=== PATIENT | male | born 1995 | race Caucasian/White ===

== ENCOUNTER 2020-03-05 16:12 | Emergency (ER) | payer OTHER ==
[2020-03-05] MEDS ORDERED: Ringers Lactate 1,000 ML IV ONE (17:35)
[2020-03-05] MEDS ORDERED: DIAZEPAM 10 MG/2 ML INJ SYRINGE ONE (17:35)
[2020-03-05] MEDS ORDERED: MECLIZINE HCL 12.5 MG TAB ONE (17:35)
[2020-03-05 17:46] LABS: Absolute Lymphocytes (CBC) 0.7 K/uL (0.7-4.9); Basophils % 0.4 % (0-1.3); Hematocrit 47.2 % (39.6-49.0); Lymphocytes % 11.4 % (15.3-44.8); MPV 9.1 fL (7.6-11.3); Protime INR 0.91
[2020-03-05 17:58] LABS: ALT/SGPT 39 U/L (12-78); AST/SGOT 26 U/L (15-37); Albumin 4.5 g/dL (3.4-5.0); Alkaline Phosphatase 67 U/L (45-117); BUN Blood Urea Nitrogen 13 mg/dL (7-18); Bicarbonate 25 mmol/L (21-32); Bilirubin Direct 0.2 mg/dL (0-0.2); Bilirubin Total 0.7 mg/dL (0.2-1.0); Glucose Level 179 mg/dL (74-106); Potassium 3.7 mmol/L (3.5-5.1); Protein, Total 8.1 g/dL (6.4-8.2); Sodium Level 136 mmol/L (136-145)
[2020-03-05 19:17] LABS: Barbiturates NEGATIVE (NEGATIVE); Benzodiazepines NEGATIVE (NEGATIVE); Cocaine NEGATIVE (NEGATIVE); METHAMPHETAM NEGATIVE (NEGATIVE); Methadone NEGATIVE (NEGATIVE); Opiates NEGATIVE (NEGATIVE); Phencyclidine NEGATIVE (NEGATIVE); THC Cannibis NEGATIVE (NEGATIVE)
--- NOTE | 2020-03-05 19:22 | EDPHYS ---
Physician Documentation [facility] Name: Leonidas Monson Age: 24 yrs Sex: Male : 1995 Arrival Date: 03/05/2020 Time: 16:14 Bed 23 Private MD: ED Physician Qasim Copeland HPI: 03/05 18:05 This 24 yrs old Male presents to ER via Ambulatory with complaints of jr8 Dizziness. 18:05 Onset: The symptoms/episode began/occurred acutely, today. Modifying factors: The jr8 symptoms are alleviated by holding head still, lying down, the symptoms are aggravated by movement of head. Associated signs and symptoms: The patient has no apparent associated signs or symptoms. Severity of symptoms: At their worst the symptoms were mild in the emergency department the symptoms are unchanged. The patient has not experienced similar symptoms in the past. The patient has not recently seen a physician. Patient stated that he drank about 15 beers yesterday. Last drink about 10 last night. Today dizzy and shaky . Historical: - Allergies: 16:30 No Known Allergies; ca1 - Home Meds: 16:30 None [Active]; ca1 - PMHx: 16:30 None; ca1 - PSHx: 16:30 None; ca1 - Immunization history:: Adult Immunizations up to date. - Social history:: Smoking status: Patient denies any tobacco usage or history of. Patient uses alcohol, on a daily basis. Patient/guardian denies using street drugs, IV drugs. ROS: 19:20 Eyes: Negative for injury, pain, redness, and discharge, ENT: Negative for injury, jr8 pain, and discharge, Neck: Negative for injury, pain, and swelling, Cardiovascular: Negative for chest pain, palpitations, and edema, Respiratory: Negative for shortness of breath, cough, wheezing, and pleuritic chest pain, Abdomen/GI: Negative for abdominal pain, nausea, vomiting, diarrhea, and constipation, Back: Negative for injury and pain, MS/Extremity: Negative for injury and deformity, Skin: Negative for injury, rash, and discoloration. 19:20 Neuro: Positive for dizziness. Exam: 19:20 Eyes: Pupils equal round and reactive to light, extra-ocular motions intact. Lids and jr8 lashes normal. Conjunctiva and sclera are non-icteric and not injected. Cornea within normal limits. Periorbital areas with no swelling, redness, or edema. ENT: Nares patent. No nasal discharge, no septal abnormalities noted. Tympanic membranes are normal and external auditory canals are clear. Oropharynx with no redness, swelling, or masses, exudates, or evidence of obstruction, uvula midline. Mucous membranes moist. Neck: Trachea midline, no thyromegaly or masses palpated, and no cervical lymphadenopathy. Supple, full range of motion without nuchal rigidity, or vertebral point tenderness. No Meningismus. Respiratory: Lungs have equal breath sounds bilaterally, clear to auscultation and percussion. No rales, rhonchi or wheezes noted. No increased work of breathing, no retractions or nasal flaring. Abdomen/GI: Soft, non-tender, with normal bowel sounds. No distension or tympany. No guarding or rebound. No evidence of tenderness throughout. Back: No spinal tenderness. No costovertebral tenderness. Full range of motion. Skin: Warm, dry with normal turgor. Normal color with no rashes, no lesions, and no evidence of cellulitis. MS/ Extremity: Pulses equal, no cyanosis. Neurovascular intact. Full, normal range of motion. Neuro: Awake and alert, GCS 15, oriented to person, place, time, and situation. Cranial nerves II-XII grossly intact. Motor strength 5/5 in all extremities. Sensory grossly intact. Cerebellar exam normal. Normal gait. 19:20 Cardiovascular: Rate: tachycardic, Rhythm: regular, Pulses: Pulses are 2+ in right radial artery and left radial artery. Heart sounds: normal, normal S1and S2, no S3 or S4, no murmur, no rub, no gallop, Edema: is not appreciated, JVD: is not appreciated. Vital Signs: 16:26 BP 153 / 86; Pulse 111; Resp 18 S; Temp 98.1(TE); Pulse Ox 100% on R/A; Weight 90.72 kg ca1 (R); Height 6 ft. 4 in. (193.04 cm) (R); Pain 0/10; 17:36 BP 141 / 80; Pulse 90; Resp 20 S; Pulse Ox 100% on R/A; jd3 18:58 BP 131 / 81; Pulse 84; Resp 16 S; Pulse Ox 99% on R/A; jd3 19:48 BP 138 / 87; Pulse 89; Resp 17 S; Pulse Ox 99% on R/A; jd3 16:26 Body Mass Index 24.34 (90.72 kg, 193.04 cm) ca1 MDM: 16:44 Patient medically screened. [facility] 19:20 Data reviewed: vital signs, nurses notes, lab test result(s), EKG. Data interpreted: [facility] Pulse oximetry: on room air is 99 %. Interpretation: normal. Counseling: I had a detailed discussion with the patient and/or guardian regarding: the historical points, exam findings, and any diagnostic results supporting the discharge/admit diagnosis, lab results, the need for outpatient follow up, a family practitioner, to return to the emergency department if symptoms worsen or persist or if there are any questions or concerns that arise at home. Response to treatment: the patient's symptoms have resolved after treatment, patient is well hydrated. 03/05 16:54 Order name: Acetaminophen [facility] 03/05 16:54 Order name: Basic Metabolic Panel [facility] 03/05 16:54 Order name: CBC with Diff; Complete Time: 17:49 [facility] 03/05 16:54 Order name: ETOH Level; Complete Time: 18:23 [facility] 03/05 16:54 Order name: Hepatic Function; Complete Time: 18:23 [facility] 03/05 16:54 Order name: PT-INR; Complete Time: 17:49 [facility] 03/05 16:54 Order name: Ptt, Activated; Complete Time: 17:49 [facility] 03/05 16:54 Order name: Salicylate; Complete Time: 18:23 [facility] 03/05 16:54 Order name: Urine Drug Screen; Complete Time: 19:18 [facility] 03/05 16:55 Order name: Acetaminophen Level; Complete Time: 18:23 EDMS 03/05 16:55 Order name: Basic Metabolic Panel; Complete Time: 18:23 EDMS 03/05 18:56 Order name: Urine Dipstick--Ancillary (enter results); Complete Time: 19:46 bd 03/05 16:35 Order name: EKG; Complete Time: 16:35 ca1 03/05 16:35 Order name: EKG - Nurse/Tech; Complete Time: 16:35 ca1 03/05 16:54 Order name: IV Saline Lock; Complete Time: 17:20 [facility] 03/05 16:54 Order name: Labs collected and sent; Complete Time: 17:20 jr8 03/05 16:54 Order name: Urine Dipstick-Ancillary (obtain specimen); Complete Time: 19:02 8 Administered Medications: 17:33 Drug: Valium 5 mg Route: IVP; Site: right antecubital; jd3 18:30 Follow up: Response: No adverse reaction jd3 17:33 Drug: Meclizine 25 mg Route: PO; jd3 18:30 Follow up: Response: No adverse reaction jd3 17:34 Drug: Ringers - Lactated Ringers Solution 1000 ml Route: IV; Rate: bolus; Site: right jd3 antecubital; 18:30 Follow up: Response: No adverse reaction; IV Status: Completed infusion; IV Intake: jd3 1000ml Disposition: 03/05/20 19:22 Discharged to Home. Impression: Dizziness, Alcohol dependence with withdrawal. - Condition is Stable. - Discharge Instructions: Alcohol Withdrawal, Alcohol Use Disorder, Alcohol Abuse and Nutrition. - Medication Reconciliation Form, Thank You Letter, Antibiotic Education, Prescription Opioid Use form. - Follow up: Private Physician; When: 1 - 2 days; Reason: Recheck today's complaints, Continuance of care, Re-evaluation by your physician. - Problem is new. - Symptoms have improved. Addendum: 03/09/2020 20:25 Co-signature as Attending Physician, Qasim Copeland MD. r n Signatures: Dispatcher [employer] EDMS Qasim Copeland MD MD rn Roszak, Josh, PA PA jr8 Nish Wilson RN RN jd3 Acob, Cheryl, RN RN ca1 Corrections: (The following items were deleted from the chart) 03/05 19:50 19:22 03/05/2020 19:22 Discharged to Home. Impression: Dizziness; Alcohol dependence jd3 with withdrawal. Condition is Stable. Forms are Medication Reconciliation Form, Thank You Letter, Antibiotic Education, Prescription Opioid Use. Follow up: Private Physician; When: 1 - 2 days; Reason: Recheck today's complaints, Continuance of care, Re-evaluation by your physician. Problem is new. Symptoms have improved. jr8
--- NOTE | 2020-03-05 19:22 | ER ---
Nurse's Notes [facility] Name: Leonidas Monson Age: 24 yrs Sex: Male : 1995 Arrival Date: 03/05/2020 Time: 16:14 Bed 23 Private MD: Diagnosis: Dizziness;Alcohol dependence with withdrawal Presentation: 03/05 16:26 Chief complaint: Patient states: 30 minutes ago I felt a dizzy spell. Was laying down, ca1 and I just got dizzy and lightheaded. Denies nausea. Denies SOB. Denies previous episodes of dizziness. Coronavirus screen: Client denies travel out of the [place] in the last 14 days. At this time, the client does not indicate any symptoms associated with coronavirus-19. Ebola Screen: Patient negative for fever greater than or equal to 101.5 degrees Fahrenheit, and additional compatible Ebola Virus Disease symptoms Patient denies exposure to infectious person. Patient denies travel to an Ebola-affected area in the 21 days before illness onset. No symptoms or risks identified at this time. Initial Sepsis Screen: Does the patient meet any 2 criteria? No. Patient's initial sepsis screen is negative. Does the patient have a suspected source of infection? No. Patient's initial sepsis screen is negative. Risk Assessment: Do you want to hurt yourself or someone else? Patient reports no desire to harm self or others. Onset of symptoms was March 05, 2020. 16:26 Method Of Arrival: Ambulatory ca1 16:26 Acuity: [place] 3 ca1 Historical: - Allergies: 16:30 No Known Allergies; ca1 - Home Meds: 16:30 None [Active]; ca1 - PMHx: 16:30 None; ca1 - PSHx: 16:30 None; ca1 - Immunization history:: Adult Immunizations up to date. - Social history:: Smoking status: Patient denies any tobacco usage or history of. Patient uses alcohol, on a daily basis. Patient/guardian denies using street drugs, IV drugs. Screenin:35 Abuse screen: Denies threats or abuse. Nutritional screening: No deficits noted. jd3 Tuberculosis screening: No symptoms or risk factors identified. Fall Risk Ambulatory Aid- None/Bed Rest/Nurse Assist (0 pts). Gait- Normal/Bed Rest/Wheelchair (0 pts) Mental Status- Oriented to own ability (0 pts). Total Hawk Fall Scale indicates No Risk (0-24 pts). Assessment: 17:20 General: Appears in no apparent distress. uncomfortable, Behavior is calm, cooperative, jd3 appropriate for age, anxious. Pain: Denies pain. Neuro: Level of Consciousness is awake, alert, obeys commands, Oriented to person, place, time, situation, Reports dizziness. Cardiovascular: Denies chest pain, Capillary refill < 3 seconds Patient's skin is warm and dry. Respiratory: Airway is patent Respiratory effort is even, unlabored, Respiratory pattern is regular, symmetrical, Denies cough, shortness of breath. GI: Abdomen is round non-distended, Abd is soft and non tender X 4 quads. Patient currently denies diarrhea, nausea, vomiting. : No signs and/or symptoms were reported regarding the genitourinary system. EENT: No signs and/or symptoms were reported regarding the EENT system. Derm: Skin is intact, Skin is dry, Skin is normal, Skin temperature is warm. Musculoskeletal: Circulation, motion, and sensation intact. Range of motion: intact in all extremities. 18:58 Reassessment: Patient appears in no apparent distress at this time. Patient and/or jd3 family updated on plan of care and expected duration. Pain level reassessed. Patient is alert, oriented x 3, equal unlabored respirations, skin warm/dry/pink. Patient denies pain at this time. Patient states feeling better. 19:48 Reassessment: Patient appears in no apparent distress at this time. Patient and/or jd3 family updated on plan of care and expected duration. Pain level reassessed. Patient is alert, oriented x 3, equal unlabored respirations, skin warm/dry/pink. Patient denies pain at this time. Patient states feeling better. Vital Signs: 16:26 BP 153 / 86; Pulse 111; Resp 18 S; Temp 98.1(TE); Pulse Ox 100% on R/A; Weight 90.72 kg ca1 (R); Height 6 ft. 4 in. (193.04 cm) (R); Pain 0/10; 17:36 BP 141 / 80; Pulse 90; Resp 20 S; Pulse Ox 100% on R/A; jd3 18:58 BP 131 / 81; Pulse 84; Resp 16 S; Pulse Ox 99% on R/A; jd3 19:48 BP 138 / 87; Pulse 89; Resp 17 S; Pulse Ox 99% on R/A; jd3 16:26 Body Mass Index 24.34 (90.72 kg, 193.04 cm) ca1 ED Course: 16:14 Patient arrived in ED. rg4 16:29 Triage completed. ca1 16:30 Arm band placed on right wrist. ca1 16:43 Cayetano Stevenson PA is PHCP. jr8 16:43 Qasim Copeland MD is Attending Physician. jr8 17:08 Nish Wilson, SHERON is Primary Nurse. jd3 17:20 Inserted saline lock: 20 gauge in right antecubital area, using aseptic technique. jd3 Blood collected. 17:36 Patient has correct armband on for positive identification. Bed in low position. Call jd3 light in reach. Side rails up X 1. monitoring tech on. Pulse ox on. NIBP on. 19:48 No provider procedures requiring assistance completed. IV discontinued, intact, jd3 bleeding controlled, No redness/swelling at site. Pressure dressing applied. Administered Medications: 17:33 Drug: Valium 5 mg Route: IVP; Site: right antecubital; jd3 18:30 Follow up: Response: No adverse reaction jd3 17:33 Drug: Meclizine 25 mg Route: PO; jd3 18:30 Follow up: Response: No adverse reaction jd3 17:34 Drug: Ringers - Lactated Ringers Solution 1000 ml Route: IV; Rate: bolus; Site: right jd3 antecubital; 18:30 Follow up: Response: No adverse reaction; IV Status: Completed infusion; IV Intake: jd3 1000ml Intake: 18:30 IV: 1000ml; Total: 1000ml. jd3 Outcome: 19:22 Discharge ordered by . jr8 19:48 Discharged to home ambulatory, with family. jd3 19:48 Condition: stable 19:48 Discharge instructions given to patient, Instructed on discharge instructions, follow up and referral plans. Demonstrated understanding of instructions, follow-up care. 19:50 Patient left the ED. jd3 Signatures: aCyetano Stevenson PA PA jr8 Aimee Still rg4 Nish Wilson RN RN jd3 Farnaz Lee RN RN ca1
[2020-03-05 19:32] LABS: Urine Blood NEGATIVE (NEG); Urine Glucose NEGATIVE (NEG); Urine Protein NEGATIVE (NEG); Urine Specific Gravity 1.015 (1.005-1.030)
[2020-03-05 21:22] VITALS: TEMP 98.1
[2020-03-05 21:25] VITALS: O2SAT 99
[2020-03-05 21:27] VITALS: BP 138/87
--- NOTE | 2020-03-06 07:40 | EKG ---
Test Date: 2020-03-05 Test Time: 16:34:03 Insurance Territory Manager: GIORGI MEASUREMENT RESULTS: Intervals: Rate: 106 MO: 138 QRSD: 96 QT: 330 QTc: 438 Melvin: P: 86 MO: 138 QRS: 100 T: 70 INTERPRETIVE STATEMENTS: Sinus tachycardia Right atrial enlargement Rightward axis Pulmonary disease pattern Incomplete right bundle branch block Abnormal ECG No previous ECG available for comparison Electronically Signed On 03-06-20 07:39:45 CDT by You Toussaint
== END 2020-03-05 19:50 | disposition home or self-care (01) ==
LOC: ER 16:12
DX: F10.239 Alcohol dependence with withdrawal, unspecified (principal)
CPT/HCPCS: 96365; 93005; 85025; 80048; 36415; 80320; 80329 ×2; 85610; 80076; 80307 ×8; 85730; 81003; 96375; 99284; J8597; J3360; J7120

== ENCOUNTER 2020-08-06 20:44 | Emergency (ER) | payer OTHER ==
--- OUTSIDE RECORDS SUMMARY | 2020-08-06 20:47 | XMS REPORT | Continuity of Care Document ---
:1995 Author Organization [facility] t Address [address] [place] [address] Care Team Providers Name Role Phone Asked, Pcp Primary Care Physician Unavailable Kirti Hudson MD. Attending Clinician Ajit HOLBROOK, T Attending Clinician Unavailable Lab, Fam Pob I Attending Clinician Unavailable Doctor Unassigned, Name Attending Clinician Unavailable Payers Payer Name Policy Type Policy Effective Date Expiration Date Sour Number AETNAAETNA PPO [id number] 2017 [place] OPEN 00:00:00 [employer] [id number] /07/2017-PresentP PO Problems This patient has no known problems. Allergies, Adverse Reactions, Alerts This patient has no known allergies or adverse reactions. Social History Social Habit Start Date Stop Date Quantity Comments Source Sex Assigned At Anton stominh Bettencourt Medications This patient has no known medications. Procedures Procedure Date / Time Performed Performing Clinician Lucinda e XR HAND 3+ VW RIGHT 2020-05-09 11:49:26 Pedro Hudson XR HAND 3+ VW RIGHT 2020-04-19 09:28:38 Pedro Hudson XR HAND 3+ VW RIGHT 2020-04-19 09:03:14 Pedro Hudson Plan of Care Planned Activity Planned Date Details Comments Source Future Scheduled 2020-02-17 INFLUENZA VACCINE [place] [facility] 00:00:00 [code = INFLUENZA VACCINE] Future Scheduled 2011 COVID-19 VACCINE (1 [place] [facility] Test 00:00:00 of 2) [code = COVID-19 VACCINE (1 of 2)] Encounters Start End Encounter Admission Attending Care Care Encounter Source Date/Time Date/Time Type Type Clinicians Facility Department ID 2020-05-09 2020-05-09 Outpatient [facility] [id number] [place] 00:00:00 00:00:00 PDERO 506 Method i 2020-05-09 2020-05-09 [facility] [id number] [place] 00:00:00 00:00:00 PEDRO 884 [facility] i 2020-04-19 2020-04-19 [facility] [id number] [place] 00:00:00 00:00:00 PEDRO 207 Method i 2020-04-19 2020-04-19 [facility] [id number] 0515 [place] 00:00:00 00:00:00 PEDRO 918 [facility] i 2020-04-19 2020-04-19 [facility] [id number] [place] 00:00:00 00:00:00 PEDRO 102 Method i 2020-04-19 2020-04-19 [facility] [id number] [place] 00:00:00 00:00:00 PEDRO 464 Method i 2020-03-15 2020-03-15 Letter SELENA Fong [id number] 00:00:00 00:00:00 (Out) Yolie SHARMA [id number] [place] [id number] 2020-03-11 2020-03-11 Laboratory Lab, [facility] [id number] 13:27:06 13:40:45 Only Fam P[facility] [id number] [place] [id number] Professio [phone] nal [address] 2020-03-11 2020-03-11 Letter Doctor WALTERS [id number] 00:00:00 00:00:00 (Out) FelisassEDITH tapia [id number] [place] [facility] [id number] [id number] Results This patient has no known results.
--- OUTSIDE RECORDS SUMMARY | 2020-08-06 20:47 | XMS REPORT | Clinical Summary ---
:1995 Author Organization [facility] Address [address] [place] [address] Care Team Providers Name Role Phone Asked, No Pcp Primary Care Provider Unavailable Allergies Not on File Medications Not on file Active Problems Not on file Encounters Date Type Specialty Care Team Description 05/09/2020 Office Visit Orthopedic Surgery Chito Hudson Righ t hand pain (Primary MD Dx) 05/09/2020 Travel 04/19/2020 Office Visit Orthopedic Surgery Chito Hudson Righ t hand pain (Primary MD Dx) 04/19/2020 Travel 04/18/2020 Travel after 08/06/2019 Social History Tobacco Use Types Packs/Day Years Used Date Never Assessed Sex Assigned at Date Recorded Not on file Last Filed Vital Signs Not on file Plan of Treatment Health Maintenance Due Date Last Done Comments COVID-19 VACCINE (1 of 2) 2011 INFLUENZA VACCINE 02/17/2020 Procedures Procedure Name Priority Date/Time Associated Diagnosis Comme nts XR HAND 3+ VW RIGHT Routine 05/09/2020 11:49 AM Right hand nidhi n Results for this CDT procedure are i n the results section. XR HAND 3+ VW RIGHT Routine 04/19/2020 9:28 AM Right hand nidhi n Results for this CDT procedure are i n the results section. XR HAND 3+ VW RIGHT Routine 04/19/2020 9:03 AM Right hand nidhi n Results for this CDT procedure are i n the results section. after 08/06/2019 Results XR Hand 3+ Vw Right (05/09/2020 11:49 AM CDT)Only the most recent of3 results within the time period is included. Specimen Narrative Performed At This result has an attachment that is no t available. 3 views Rt hand in good penetrance and quality with out any acute obvious HM RADIANT fractures, dislocations or calcifications unless HPI s tates otherwise. Performing Organization Address City/State/ZIP Code Phon e Number [place] [address] [place] [address] after 08/06/2019 Advance Directives For more information, please contact: [phone] Type Date Recorded Patient [facility] Explanati on Advance Directives, Living Will and Medical Power of Personal Lines Appraiser
[2020-08-06] MEDS ORDERED: NA CHLORIDE 0.9% 1,000 ML ONE (23:26)
--- NOTE | 2020-08-06 23:37 | ER ---
Nurse's Notes [facility] Name: Leonidas Monson Age: 24 yrs Sex: Male : 1995 Arrival Date: 08/06/2020 Time: 20:46 Bed 15 Private MD: Diagnosis: Palpitations Presentation: 08/06 21:12 Chief complaint: Patient states: Was at work around 1100 today., I got dizzy and my ca1 hands and legs started shaking. And my heart is racing and pounding all day. I feel a little bit better now but I can still feel my heart pounding. Coronavirus screen: Client denies travel out of the [place] in the last 14 days. At this time, the client does not indicate any symptoms associated with coronavirus-19. Ebola Screen: Patient negative for fever greater than or equal to 101.5 degrees Fahrenheit, and additional compatible Ebola Virus Disease symptoms Patient denies exposure to infectious person. Patient denies travel to an Ebola-affected area in the 21 days before illness onset. No symptoms or risks identified at this time. Initial Sepsis Screen: Does the patient meet any 2 criteria? No. Patient's initial sepsis screen is negative. Does the patient have a suspected source of infection? No. Patient's initial sepsis screen is negative. Risk Assessment: Do you want to hurt yourself or someone else? Patient reports no desire to harm self or others. Onset of symptoms was August 06, 2020. 21:12 Method Of Arrival: Ambulatory ca1 21:12 Acuity: [place] 3 ca1 Historical: - Allergies: 21:17 No Known Allergies; ca1 - Home Meds: 21:17 None [Active]; ca1 - PMHx: 21:17 None; ca1 - PSHx: 21:17 None; ca1 - Immunization history:: Flu vaccine is not up to date. - Social history:: Smoking status: Patient denies any tobacco usage or history of. Patient/guardian denies using alcohol, street drugs, The patient lives with family. - Family history:: not pertinent. Screenin:10 Abuse screen: Denies threats or abuse. Denies injuries from another. Nutritional rr5 screening: No deficits noted. Tuberculosis screening: No symptoms or risk factors identified. Fall Risk IV access (20 points). Total Hawk Fall Scale indicates No Risk (0-24 pts). Assessment: 23:00 General: Appears in no apparent distress. uncomfortable, Behavior is calm, cooperative, rr5 anxious. Pain: Denies pain. Neuro: Level of Consciousness is awake, alert, obeys commands, Oriented to person, place, time, Reports dizziness, tremors. Cardiovascular: Reports palpitations, Capillary refill < 3 seconds Patient's skin is warm and dry. Respiratory: Airway is patent Respiratory effort is even, unlabored, Respiratory pattern is regular, symmetrical. GI: No signs and/or symptoms were reported involving the gastrointestinal system. : No signs and/or symptoms were reported regarding the genitourinary system. EENT: No signs and/or symptoms were reported regarding the EENT system. Derm: Skin is intact, is healthy with good turgor, Skin temperature is warm. 23:00 Musculoskeletal: Capillary refill < 3 seconds. rr5 23:35 Reassessment: advised not to drive if will receive ativan he said no one will pick him rr5 up. ED provider informed, ativan order cancelled. 08/07 00:13 Reassessment: Patient appears in no apparent distress at this time. Patient is alert, rr5 oriented x 3, equal unlabored respirations, skin warm/dry/pink. discharge instruction given and explained without complaints made. Vital Signs: 08/06 21:12 BP 147 / 88; Pulse 101; Resp 16 S; Temp 98.4(TE); Pulse Ox 100% on R/A; Weight 90.72 kg ca1 (R); Height 6 ft. 4 in. (193.04 cm) (R); Pain 0/10; 23:00 BP 141 / 70; Pulse 89; Resp 19; Pulse Ox 98% ; rr5 08/07 00:15 BP 133 / 75; Pulse 80; Resp 16; Pulse Ox 99% ; rr5 08/06 21:12 Body Mass Index 24.34 (90.72 kg, 193.04 cm) ca1 ED Course: 08/06 20:46 Patient arrived in ED. cf2 21:16 Triage completed. ca1 21:17 Arm band placed on right wrist. ca1 22:54 Brayden Ortiz MD is Attending Physician. ma2 23:00 Karl Brown RN is Primary Nurse. rr5 23:00 Patient has correct armband on for positive identification. Bed in low position. Call rr5 light in reach. electrotype molder on. Pulse ox on. NIBP on. 23:30 Inserted saline lock: 20 gauge in left antecubital area, using aseptic technique. rr5 08/07 00:15 No provider procedures requiring assistance completed. IV discontinued, intact, rr5 bleeding controlled, No redness/swelling at site. Pressure dressing applied. Administered Medications: 08/06 23:30 Drug: NS 0.9% 1000 ml Route: IV; Rate: 1 bolus; Site: left antecubital; rr5 08/07 00:15 Follow up: Response: No adverse reaction; IV Status: Completed infusion; IV Intake: rr5 1000ml 08/06 23:51 Not Given (Physician Discretion): Ativan 0.5 mg IVP once rr5 Intake: 08/07 00:15 IV: 1000ml; Total: 1000ml. rr5 Outcome: 08/06 23:36 Discharge ordered by . ma2 08/07 00:15 Discharged to home ambulatory. rr5 Condition: stable Discharge instructions given to patient, Instructed on discharge instructions, follow up and referral plans. medication usage, Demonstrated understanding of instructions, follow-up care, medications, Prescriptions given X 1. 00:19 Patient left the ED. rr5 Signatures: Brayden Ortiz MD MD [facility] Karl Brown RN RN rr5 Farnaz Lee RN RN [facility] Sada [place] 2
--- NOTE | 2020-08-06 23:37 | EDPHYS ---
Physician Documentation [facility] Name: Leonidas Monson Age: 24 yrs Sex: Male : 1995 Arrival Date: 08/06/2020 Time: 20:46 Bed 15 Private MD: ED Physician Brayden Ortiz HPI: 08/06 23:34 This 24 yrs old Male presents to ER via Ambulatory with complaints of ma2 Palpitations. 23:34 The patient presents with a history of heart racing. Onset: The symptoms/episode ma2 began/occurred gradually, 1 day(s) ago. Associated signs and symptoms: Pertinent negatives: cough, nausea, syncope. Severity of symptoms: At their worst the symptoms were mild in the emergency department the symptoms have resolved. The patient has experienced similar episodes in the past. hx of heavy alcohol drinking, palpitation resolved after alcohol drink,. Historical: - Allergies: 21:17 No Known Allergies; ca1 - Home Meds: 21:17 None [Active]; ca1 - PMHx: 21:17 None; ca1 - PSHx: 21:17 None; ca1 - Immunization history:: Flu vaccine is not up to date. - Social history:: Smoking status: Patient denies any tobacco usage or history of. Patient/guardian denies using alcohol, street drugs, The patient lives with family. - Family history:: not pertinent. ROS: 23:34 Constitutional: Negative for fever, chills, and weight loss. ma2 23:34 All other systems are negative. Exam: 23:34 Constitutional: This is a well developed, well nourished patient who is awake, alert, ma2 and in no acute distress. Neck: Trachea midline, no thyromegaly or masses palpated, and no cervical lymphadenopathy. Supple, full range of motion without nuchal rigidity, or vertebral point tenderness. No Meningismus. Chest/axilla: Normal chest wall appearance and motion. Nontender with no deformity. No lesions are appreciated. Cardiovascular: Regular rate and rhythm with a normal S1 and S2. No gallops, murmurs, or rubs. Normal PMI, no JVD. No pulse deficits. Respiratory: Lungs have equal breath sounds bilaterally, clear to auscultation and percussion. No rales, rhonchi or wheezes noted. No increased work of breathing, no retractions or nasal flaring. Abdomen/GI: Soft, non-tender, with normal bowel sounds. No distension or tympany. No guarding or rebound. No evidence of tenderness throughout. Back: No spinal tenderness. No costovertebral tenderness. Full range of motion. MS/ Extremity: Pulses equal, no cyanosis. Neurovascular intact. Full, normal range of motion. Neuro: Awake and alert, GCS 15, oriented to person, place, time, and situation. Cranial nerves II-XII grossly intact. Motor strength 5/5 in all extremities. Sensory grossly intact. Cerebellar exam normal. Normal gait. Vital Signs: 21:12 BP 147 / 88; Pulse 101; Resp 16 S; Temp 98.4(TE); Pulse Ox 100% on R/A; Weight 90.72 kg ca1 (R); Height 6 ft. 4 in. (193.04 cm) (R); Pain 0/10; 23:00 BP 141 / 70; Pulse 89; Resp 19; Pulse Ox 98% ; rr5 08/07 00:15 BP 133 / 75; Pulse 80; Resp 16; Pulse Ox 99% ; rr5 08/06 21:12 Body Mass Index 24.34 (90.72 kg, 193.04 cm) ca1 MDM: 08/06 22:54 Patient medically screened. ma2 23:34 MAGALY Risk Score: Not Applicable. Differential diagnosis: arrythmia, dehydration, stress ma2 disorder. Data reviewed: vital signs, nurses notes. Counseling: I had a detailed discussion with the patient and/or guardian regarding: the historical points, exam findings, and any diagnostic results supporting the discharge/admit diagnosis, the presence of at least one elevated blood pressure reading (>120/80) during this emergency department visit, the need for outpatient follow up. Response to treatment: the patient's symptoms have markedly improved after treatment. 08/06 21:30 Order name: EKG; Complete Time: 21:30 ca1 08/06 21:30 Order name: EKG - Nurse/Tech; Complete Time: 21:30 ca1 Administered Medications: 23:30 Drug: NS 0.9% 1000 ml Route: IV; Rate: 1 bolus; Site: left antecubital; rr5 08/07 00:15 Follow up: Response: No adverse reaction; IV Status: Completed infusion; IV Intake: rr5 1000ml 08/06 23:51 Not Given (Physician Discretion): Ativan 0.5 mg IVP once rr5 Disposition: 08/06/20 23:36 Discharged to Home. Impression: Palpitations. - Condition is Stable. - Prescriptions for buspirone 5 mg Oral tablet - take 1 tablet by ORAL route 3 times per day; 30 tablet. - Medication Reconciliation Form, Thank You Letter, Antibiotic Education, Prescription Opioid Use form. - Follow up: Private Physician; When: Tomorrow; Reason: Continuance of care. Signatures: Brayden Ortiz MD MD ma2 Karl Brown RN RN rr5 Jesus, Farnaz RN RN ca1 Corrections: (The following items were deleted from the chart) 08/07 00:19 08/06 23:36 08/06/2020 23:36 Discharged to Home. Impression: Palpitations. Condition is rr5 Stable. Prescriptions for buspirone 5 mg Oral tablet - take 1 tablet by ORAL route 3 times per day; 30 tablet. and Forms are Medication Reconciliation Form, Thank You Letter, Antibiotic Education, Prescription Opioid Use. Follow up: Private Physician; When: Tomorrow; Reason: Continuance of care. ma2
[2020-08-07 00:27] VITALS: TEMP 98.4
[2020-08-07 00:28] VITALS: BP 133/75; O2SAT 99
== END 2020-08-07 00:19 | disposition home or self-care (01) ==
LOC: ER 20:44
DX: R00.2 Palpitations (principal)
CPT/HCPCS: 93005; J7030; 96360; 99284

== ENCOUNTER 2020-08-08 16:28 | Emergency (ER) | payer OTHER ==
--- OUTSIDE RECORDS SUMMARY | 2020-08-08 16:30 | XMS REPORT | Continuity of Care Document ---
:1995 Author Organization [facility] t Address [address] [place] [address] Support Name Relationship Address Phone Ermias Father [address] [place] [address] Ermias Mother [address] [place] [address] Hernandez Domestic partner Unavailable Care Team Providers Name Role Phone Asked, Pcp Primary Care Physician Unavailable Kirti Hudson MD. Attending Clinician Ajit HOLBROOK, T Attending Clinician Unavailable Lab, Fam Pob I Attending Clinician Unavailable Doctor Unassigned, Name Attending Clinician Unavailable Payers Payer Name Policy Type Policy Effective Date Expiration Date Sour Number AETNAAETNA PPO [id number] 2017 [place] OPEN 00:00:00 [employer] [id number] /07/[id number] PO Problems This patient has no [...] Future Scheduled 2020-02-17 INFLUENZA VACCINE [place] [employer] Test 00:00:00 [code = INFLUENZA VACCINE] Future Scheduled 2011 COVID-19 VACCINE (1 [place] [employer] Test 00:00:00 of 2) [code = COVID-19 VACCINE (1 of 2)] Encounters Start End Encounter Admission Attending Care Care Encounter Source Date/Time Date/Time Type Type Clinicians Facility Department ID 2020-05-09 2020-05-09 Outpatient [facility] [id number] [place] 00:00:00 00:00:00 PEDRO 506 Method i 2020-05-09 2020-05-09 [facility] [id number] [place] 00:00:00 00:00:00 PEDRO 884 [facility] i 2020-04-19 2020-04-19 [facility] [id number] [place] 00:00:00 00:00:00 PEDRO 207 [facility] i 2020-04-19 2020-04-19 [facility] [id number] [place] 00:00:00 00:00:00 PEDRO 918 [facility] i 2020-04-19 2020-04-19 [facility] [id number] [place] 00:00:00 00:00:00 PEDRO 102 Method i 2020-04-19 2020-04-19 [facility] [id number] [place] 00:00:00 00:00:00 PEDRO 464 Method i 2020-03-15 2020-03-15 Letter SELENA Fong [id number] 00:00:00 00:00:00 (Out) Yolie SHARMA [id number] [place] [id number] 2020-03-11 2020-03-11 Laboratory Lab, [facility] [id number] 13:27:06 13:40:45 Only Fam Pob [facility] [id number] [place] [id number] Professio [phone] [address]al [address] 2020-03-11 2020-03-11 Letter Doctor WALTERS [id number] 00:00:00 00:00:00 (Out) FelisassEDITH tapia [id number] [place] [facility] [id number] Results This patient has no known results.
--- OUTSIDE RECORDS SUMMARY | 2020-08-08 16:30 | XMS REPORT | Clinical Summary ---
:1995 Author Organization [facility] Address [address] [place] [address] Care Team Providers Name Role Phone Asked, [...] MD Dx) 04/19/2020 Travel 04/18/2020 Travel after 08/08/2019 Social History Tobacco Use Types Packs/Day Years [...] are i n the results section. after 08/08/2019 Results XR Hand 3+ Vw Right (05/09/2020 [...] City/State/ZIP Code Phon e Number [place] [address] [place] [address] after 08/08/2019 Advance Directives For more information, please contact: [phone] Type Date Recorded Patient Nutritional Health Coach Explanati on Advance Directives, Living Will and Medical Power of [employer] Consultant
[2020-08-08] MEDS ORDERED: NA CHLORIDE 0.9% 500 ML ONE (20:11)
[2020-08-08 20:16] LABS: Urine Blood 2+ (NEG); Urine Glucose NEGATIVE (NEG); Urine Protein NEGATIVE (NEG); Urine Specific Gravity >1.030 (1.005-1.030)
[2020-08-08 20:38] LABS: Barbiturates NEGATIVE (NEGATIVE); Benzodiazepines NEGATIVE (NEGATIVE); Cocaine NEGATIVE (NEGATIVE); METHAMPHETAM NEGATIVE (NEGATIVE); Methadone NEGATIVE (NEGATIVE); Opiates NEGATIVE (NEGATIVE); Phencyclidine NEGATIVE (NEGATIVE); THC Cannibis NEGATIVE (NEGATIVE)
--- NOTE | 2020-08-08 20:39 | RAD REPORT ---
EXAM DESCRIPTION: RAD - Chest Single View - 08/08/2020 8:27 pm CLINICAL HISTORY: Chest pain;Palpitations Chest pain. COMPARISON: No comparisons FINDINGS: Portable technique limits examination quality. The lungs are grossly clear. The heart is normal in size. No displaced fractures.Mild dextroscoliosis of the thoracic spine. IMPRESSION: No acute intrathoracic process suspected.
[2020-08-08 20:40] LABS: Absolute Lymphocytes (CBC) 1.2 K/uL (0.7-4.9); Basophils % 0.5 % (0-1.3); Hematocrit 46.4 % (39.6-49.0); Lymphocytes % 14.4 % (15.3-44.8); MPV 9.2 fL (7.6-11.3); RBC Red Blood Cell Count 4.79 M/uL (4.33-5.43)
[2020-08-08 20:42] LABS: Protime INR 0.91
[2020-08-08 20:50] LABS: ALT/SGPT 56 U/L (12-78); AST/SGOT 35 U/L (15-37); Albumin 4.6 g/dL (3.4-5.0); Alkaline Phosphatase 64 U/L (45-117); BUN Blood Urea Nitrogen 8 mg/dL (7-18); Bicarbonate 27 mmol/L (21-32); Bilirubin Direct 0.2 mg/dL (0-0.2); Bilirubin Total 0.6 mg/dL (0.2-1.0); Glucose Level 97 mg/dL (74-106); Magnesium 2.6 mg/dL (1.8-2.4); NT PRO-BNP 23 pg/mL (<125); Protein, Total 8.6 g/dL (6.4-8.2); Sodium Level 139 mmol/L (136-145); Troponin (Emerg Dept Use Only) < 0.02 ng/mL (0.0-0.045)
[2020-08-08] MEDS ORDERED: METOPROLOL XL 50 MG TAB PO ONE (21:20)
[2020-08-08] MEDS ORDERED: THIAMINE HCL 100 MG TABLET ONE (21:20)
[2020-08-08] MEDS ORDERED: ASPIRIN EC 81 MG TAB PO ONE (21:21)
--- NOTE | 2020-08-08 21:23 | EDPHYS ---
Physician Documentation [facility] Name: Leonidas Monson Age: 24 yrs Sex: Male : 1995 Arrival Date: 08/08/2020 Time: 16:32 Bed 23 Private MD: RACHEL Physician Dhaval Estrella HPI: 08/08 20:45 This 24 yrs old Male presents to ER via Ambulatory with complaints of HIGH giancarlo HEART RATE; SHAKEY. 20:45 The patient presents with a history of heart racing, heart skipping beats. Context: The giancarlo symptoms occur with anxiety, with light activity. Onset: The symptoms/episode began/occurred 4 week(s) ago. Duration: The patient or guardian reports multiple episodes, that are intermittent, with no pattern. Modifying factors: The symptoms are aggravated by nothing. The symptoms are alleviated by nothing. Associated signs and symptoms: The patient has no apparent associated signs or symptoms. Severity of symptoms: At their worst the symptoms were moderate. The patient has not experienced similar symptoms in the past. Historical: - Allergies: 16:42 No Known Allergies; ll1 - PMHx: 16:42 leg sx; ll1 - Immunization history:: Flu vaccine is not up to date. - Social history:: Smoking status: Patient denies any tobacco usage or history of. - Family history:: not pertinent. ROS: 20:45 Constitutional: Negative for fever, chills, and weight loss, Eyes: Negative for injury, giancarlo pain, redness, and discharge, ENT: Negative for injury, pain, and discharge, Neck: Negative for injury, pain, and swelling, Respiratory: Negative for shortness of breath, cough, wheezing, and pleuritic chest pain, Abdomen/GI: Negative for abdominal pain, nausea, vomiting, diarrhea, and constipation, Back: Negative for injury and pain, : Negative for injury, bleeding, discharge, and swelling, MS/Extremity: Negative for injury and deformity, Skin: Negative for injury, rash, and discoloration, Neuro: Negative for headache, weakness, numbness, tingling, and seizure, Psych: Negative for depression, anxiety, suicide ideation, homicidal ideation, and hallucinations, Allergy/Immunology: Negative for hives, rash, and allergies, Endocrine: Negative for neck swelling, polydipsia, polyuria, polyphagia, and marked weight changes, Hematologic/Lymphatic: Negative for swollen nodes, abnormal bleeding, and unusual bruising. 20:45 Cardiovascular: Positive for chest pain, palpitations. Exam: 20:45 Constitutional: This is a well developed, well nourished patient who is awake, alert, giancarlo and in no acute distress. Head/Face: Normocephalic, atraumatic. Eyes: Pupils equal round and reactive to light, extra-ocular motions intact. Lids and lashes normal. Conjunctiva and sclera are non-icteric and not injected. Cornea within normal limits. Periorbital areas with no swelling, redness, or edema. ENT: Nares patent. No nasal discharge, no septal abnormalities noted. Tympanic membranes are normal and external auditory canals are clear. Oropharynx with no redness, swelling, or masses, exudates, or evidence of obstruction, uvula midline. Mucous membranes moist. Neck: Trachea midline, no thyromegaly or masses palpated, and no cervical lymphadenopathy. Supple, full range of motion without nuchal rigidity, or vertebral point tenderness. No Meningismus. Chest/axilla: Normal chest wall appearance and motion. Nontender with no deformity. No lesions are appreciated. Cardiovascular: Regular rate and rhythm with a normal S1 and S2. No gallops, murmurs, or rubs. Normal PMI, no JVD. No pulse deficits. Respiratory: Lungs have equal breath sounds bilaterally, clear to auscultation and percussion. No rales, rhonchi or wheezes noted. No increased work of breathing, no retractions or nasal flaring. Abdomen/GI: Soft, non-tender, with normal bowel sounds. No distension or tympany. No guarding or rebound. No evidence of tenderness throughout. Back: No spinal tenderness. No costovertebral tenderness. Full range of motion. Male : Normal genitalia with no discharge or lesions. Skin: Warm, dry with normal turgor. Normal color with no rashes, no lesions, and no evidence of cellulitis. MS/ Extremity: Pulses equal, no cyanosis. Neurovascular intact. Full, normal range of motion. Neuro: Awake and alert, GCS 15, oriented to person, place, time, and situation. Cranial nerves II-XII grossly intact. Motor strength 5/5 in all extremities. Sensory grossly intact. Cerebellar exam normal. Normal gait. Psych: Awake, alert, with orientation to person, place and time. Behavior, mood, and affect are within normal limits. 20:47 Musculoskeletal/extremity: DVT Exam: No signs of deep vein thrombosis. no pain, no giancarlo swelling, no tenderness, negative Homans' sign noted on exam, no appreciated bluish discoloration, no erythema, no increased warmth. 20:53 ECG was reviewed by the Attending Physician. [facility] Vital Signs: 16:39 BP 166 / 106; Pulse 106; Resp 17; Temp 98.6; Pulse Ox 99% ; Weight 87.54 kg; Height 6 ll1 ft. 4 in. (193.04 cm); Pain 0/10; 20:30 BP 147 / 97; Pulse 81; Resp 17; Pulse Ox 100% ; bp 22:22 BP 146 / 95; Pulse 83; Resp 17; Temp 98.5; Pulse Ox 100% ; bp 16:39 Body Mass Index 23.49 (87.54 kg, 193.04 cm) ll1 MDM: 19:48 Patient medically screened. giancarlo 20:46 Differential diagnosis: arrythmia. Data reviewed: vital signs, nurses notes, lab test [facility] result(s), EKG, radiologic studies, plain films. Data interpreted: christmas tree grower: rate is 106 beats/min, rhythm is regular, Pulse oximetry: is not applicable for this patient encounter. Test interpretation: by ED physician or midlevel provider: ECG, plain radiologic studies. Counseling: I had a detailed discussion with the patient and/or guardian regarding: the historical points, exam findings, and any diagnostic results supporting the discharge/admit diagnosis, lab results, radiology results, the need for outpatient follow up, for definitive care, a division superintendent. 08/08 19:49 Order name: Basic Metabolic Panel 08/08 19:49 Order name: CBC with Diff 08/08 19:49 Order name: LFT's 08/08 19:49 Order name: Magnesium giancarlo 08/08 19:49 Order name: NT PRO-BNP giancarlo 08/08 19:49 Order name: Troponin (emerg Dept Use Only) 08/08 19:49 Order name: Acetaminophen [facility] 08/08 19:49 Order name: ETOH Level 08/08 19:49 Order name: PT-INR 08/08 19:49 Order name: Ptt, Activated [facility] 08/08 19:49 Order name: Salicylate [facility] 08/08 19:49 Order name: Urine Drug Screen [facility] 08/08 20:08 Order name: Urine Dipstick--Ancillary (enter results) mw2 08/08 20:17 Order name: Urine Dipstick-Ancillary; Complete Time: 20:44 EDIL 08/08 19:49 Order name: XRAY Chest (1 view) [facility] 08/08 20:38 Order name: Urine Drug Screen; Complete Time: 20:44 [facility] 08/08 20:40 Order name: Alcohol Serum/Plasma; Complete Time: 20:44 [facility] 08/08 20:40 Order name: Salicylates Level; Complete Time: 20:44 [facility] 08/08 20:40 Order name: RAD; Complete Time: 20:44 [facility] 08/08 20:44 Order name: TSH [facility] 08/08 20:48 Order name: Protime (+INR); Complete Time: 21:21 [facility] 08/08 20:48 Order name: PTT, Activated Partial Thromb; Complete Time: 21:21 [facility] 08/08 20:49 Order name: CBC with Automated Diff; Complete Time: 21:21 [facility] 08/08 20:50 Order name: Basic Metabolic Panel; Complete Time: 21:21 [facility] 08/08 20:50 Order name: Liver (Hepatic) Function; Complete Time: 21:21 [facility] 08/08 20:50 Order name: Troponin (Emerg Dept Use Only); Complete Time: 21:21 [facility] 08/08 20:50 Order name: NT PRO-BNP; Complete Time: 21:21 [facility] 08/08 20:50 Order name: Acetaminophen Level; Complete Time: 21:21 [facility] 08/08 20:50 Order name: Magnesium; Complete Time: 21:21 [facility] 08/08 21:10 Order name: Thyroid Stimulating Hormone; Complete Time: 21:21 [facility] 08/08 19:49 Order name: EKG; Complete Time: 19:50 [facility] 08/08 19:49 Order name: Cardiac monitoring; Complete Time: 21:09 [facility] 08/08 19:49 Order name: EKG - Nurse/Tech; Complete Time: 20:07 [facility] 08/08 19:49 Order name: IV Saline Lock; Complete Time: 20:07 [facility] 08/08 19:49 Order name: Labs collected and sent; Complete Time: 20:06 [facility] 08/08 19:49 Order name: O2 Per Protocol; Complete Time: 20:06 [facility] 08/08 19:49 Order name: O2 Sat Monitoring; Complete Time: 20: [facility] 08/08 19:49 Order name: Urine Dipstick-Ancillary (obtain specimen); Complete Time: 20:06 [facility] EC:53 Rate is 106 beats/min. Rhythm is regular. QRS [place] is Normal. ID interval is normal. [facility] QRS interval is normal. QT interval is normal. No Q waves. T waves are Normal. No ST changes noted. Clinical impression: NSR w/ Non-specific ST/T Changes, Sinus tachycardia, and No evidence of ischemia. Interpreted by me. Reviewed by me. Administered Medications: 20:07 Drug: NS 0.9% 500 ml Route: IV; Rate: bolus; Site: right antecubital; rr5 22:22 Follow up: IV Status: Completed infusion; IV Intake: 500ml bp 21:00 Drug: ToPROL XL (metoprolol SUCCINATE XL) 50 mg Route: PO; bp 22:22 Follow up: Response: No adverse reaction bp 21:00 Drug: Aspirin Chewable Tablet 162 mg Route: PO; bp 22:21 Follow up: Response: No adverse reaction bp 21:00 Drug: Thiamine 100 mg Route: PO; bp 22:21 Follow up: Response: No adverse reaction bp 21:08 Not Given (MED UNAVAILABLE): Thiamine 100 mg IV at bolus once bp Disposition: 08/08/20 21:22 Discharged to Home. Impression: Palpitations, Essential (primary) hypertension, Alcohol abuse, uncomplicated. - Condition is Stable. - Discharge Instructions: Alcohol Use Disorder, Hypertension, Palpitations, Alcohol Abuse and Nutrition, Aspirin and Your Heart, Palpitations, [id number]. - Prescriptions for Toprol XL 25 mg Oral Tablet - take 1 tablet by ORAL route once daily; 20 tablet. - Medication Reconciliation Form, Thank You Letter, Antibiotic Education, Prescription Opioid Use form. - Follow up: Private Physician; When: 2 - 3 days; Reason: Recheck today's complaints, Continuance of care, Re-evaluation by your physician. Follow up: You Toussaint; When: 2 - 3 days; Reason: Recheck today's complaints, Continuance of care, Re-evaluation by your physician. - Problem is new. - Symptoms have improved. Signatures: Dispatcher [employer] Dhaval James MD MD cha Peltier, Brian, RN RN bp Karl Brown, RN RN rr5 Ernesto Franklin RN RN ll1 Corrections: (The following items were deleted from the chart) 22:24 21:22 08/08/2020 21:22 Discharged to Home. Impression: Palpitations; Essential bp (primary) hypertension; Alcohol abuse, uncomplicated. Condition is Stable. Discharge Instructions: Hypertension, Palpitations, Aspirin and Your Heart, Palpitations, [id number]. Prescriptions for Toprol XL 25 mg Oral Tablet - take 1 tablet by ORAL route once daily; 20 tablet. and Forms are Medication Reconciliation Form, Thank You Letter, Antibiotic Education, Prescription Opioid Use. Follow up: Private Physician; When: 2 - 3 days; Reason: Recheck today's complaints, Continuance of care, Re-evaluation by your physician. Follow up: You Toussaint; When: 2 - 3 days; Reason: Recheck today's complaints, Continuance of care, Re-evaluation by your physician. Problem is new. Symptoms have improved. giancarlo
--- NOTE | 2020-08-08 21:23 | ER ---
Nurse's Notes [facility] Name: Leonidas Monson Age: 24 yrs Sex: Male : 1995 Arrival Date: 08/08/2020 Time: 16:32 Bed 23 Private MD: Diagnosis: Palpitations;Essential (primary) hypertension;Alcohol abuse, uncomplicated Presentation: 08/08 16:39 Chief complaint: Patient states: Chills/hot, shaky, fast HR, dizzy since 1430 today ll1 while at work, no strenuous activity. Happened once 2 days ago, came in . Nothing specific found. Coronavirus screen: Client denies travel out of the [place] in the last 14 days. At this time, the client does not indicate any symptoms associated with coronavirus-19. Ebola Screen: Patient denies travel to an Ebola-affected area in the 21 days before illness onset. Initial Sepsis Screen: Does the patient meet any 2 criteria? HR > 90 bpm. No. Patient's initial sepsis screen is negative. Does the patient have a suspected source of infection? No. Patient's initial sepsis screen is negative. Risk Assessment: Do you want to hurt yourself or someone else? Patient reports no desire to harm self or others. Onset of symptoms was August 08, 2020. 16:39 Method Of Arrival: Ambulatory ll1 16:39 Acuity: [place] 3 ll1 Triage Assessment: 19:30 General: Appears in no apparent distress. comfortable, Behavior is cooperative, bp appropriate for age, anxious. Pain: Denies pain. EENT: No deficits noted. Neuro: No deficits noted. Cardiovascular: Rhythm is sinus tachycardia. Respiratory: No deficits noted. GI: No signs and/or symptoms were reported involving the gastrointestinal system. : No signs and/or symptoms were reported regarding the genitourinary system. Derm: No deficits noted. Musculoskeletal: No deficits noted. Historical: - Allergies: 16:42 No Known Allergies; ll1 - PMHx: 16:42 leg sx; ll1 - Immunization history:: Flu vaccine is not up to date. - Social history:: Smoking status: Patient denies any tobacco usage or history of. - Family history:: not pertinent. Screenin:05 Abuse screen: Denies threats or abuse. Denies injuries from another. Nutritional bp screening: No deficits noted. Tuberculosis screening: No symptoms or risk factors identified. Fall Risk None identified. Assessment: 19:30 General: SEE TRIAGE NOTE. bp 20:30 Reassessment: Patient appears in no apparent distress at this time. No changes from bp previously documented assessment. Patient and/or family updated on plan of care and expected duration. Pain level reassessed. Patient is alert, oriented x 3, equal unlabored respirations, skin warm/dry/pink. 22:22 Reassessment: PT D/C HOME AMBULATORY, DX WITH PALPITATIONS. bp Vital Signs: 16:39 BP 166 / 106; Pulse 106; Resp 17; Temp 98.6; Pulse Ox 99% ; Weight 87.54 kg; Height 6 ll1 ft. 4 in. (193.04 cm); Pain 0/10; 20:30 BP 147 / 97; Pulse 81; Resp 17; Pulse Ox 100% ; bp 22:22 BP 146 / 95; Pulse 83; Resp 17; Temp 98.5; Pulse Ox 100% ; bp 16:39 Body Mass Index 23.49 (87.54 kg, 193.04 cm) ll1 ED Course: 16:32 Patient arrived in ED. am4 16:41 Triage completed. ll1 16:42 Arm band placed on. ll1 16:50 EKG completed in triage. Results shown to MD. ll1 19:30 Patient has correct armband on for positive identification. Bed in low position. Call bp light in reach. Side rails up X2. 19:30 Inserted saline lock: 20 gauge in right forearm, using aseptic technique. Blood bp collected. 19:35 Gui Vasquez, RN is Primary Nurse. bp 19:47 Dhaval Estrella MD is Attending Physician. giancarlo 20:05 Urine collected: clean catch specimen, clear. rr5 21:22 You Toussaint MD is Referral Physician. giancarlo 21:23 TSH Sent. bp 21:23 Urine Dipstick--Ancillary (enter results) Sent. bp 22:22 No provider procedures requiring assistance completed. IV discontinued, intact, bp bleeding controlled, No redness/swelling at site. Pressure dressing applied. Administered Medications: 20:07 Drug: NS 0.9% 500 ml Route: IV; Rate: bolus; Site: right antecubital; rr5 22:22 Follow up: IV Status: Completed infusion; IV Intake: 500ml bp 21:00 Drug: ToPROL XL (metoprolol SUCCINATE XL) 50 mg Route: PO; bp 22:22 Follow up: Response: No adverse reaction bp 21:00 Drug: Aspirin Chewable Tablet 162 mg Route: PO; bp 22:21 Follow up: Response: No adverse reaction bp 21:00 Drug: Thiamine 100 mg Route: PO; bp 22:21 Follow up: Response: No adverse reaction bp 21:08 Not Given (MED UNAVAILABLE): Thiamine 100 mg IV at bolus once bp Intake: 22:22 IV: 500ml; Total: 500ml. bp Outcome: 21:22 Discharge ordered by MD. mondragon 22:22 Discharged to home ambulatory. bp 22:22 Condition: stable 22:22 Discharge instructions given to patient, Instructed on discharge instructions, follow up and referral plans. medication usage, Demonstrated understanding of instructions, follow-up care, medications, Prescriptions given X 1. 22:24 Patient left the ED. bp Signatures: Dhaval Estrella MD MD cha Peltier, Brian RN RN bp Karl Brown RN RN rr5 Ernesto Franklin RN RN ll1 Michelle Armstrong am4 Corrections: (The following items were deleted from the chart) 16:50 16:50 EKG completed in triage. Results shown to MD. bermeo ll1
[2020-08-08 22:41] VITALS: O2SAT 100
[2020-08-08 22:43] VITALS: BP 146/95; TEMP 98.5
== END 2020-08-08 22:24 | disposition home or self-care (01) ==
LOC: ER 16:28
DX: I10 Essential (primary) hypertension (principal); F10.10 Alcohol abuse, uncomplicated
CPT/HCPCS: 96361; 85025; 80048; 36415; 80320; 83735; 80329 ×2; 85610; 80076; 80307 ×8; 85730; 84443; 81003; 84484; 83880; 71045; 96360; 99284; J7040; 93005